=== PATIENT | female | born 1975 | race African-American/Black ===

== ENCOUNTER 2017-03-06 17:06 | Emergency (ER) | payer BC ==
[2017-03-06 17:11] VITALS: BP 118/82; PULSE 70; TEMP 98.6; BMI 35.9
[2017-03-06] MEDS ORDERED: ONDANSETRON *ODT* 4 MG TABLET SL ONE (17:22)
[2017-03-06] MEDS ORDERED: MECLIZINE HCL 25 MG TABLET (FP) PO ONE (17:23)
--- NOTE | 2017-03-06 17:28 | PDOC ---
History of Present Illness - General History Source: Patient Exam Limitations: No Limitations - History of Present Illness Initial Comments: 03/06/17 17:31 The patient is a 41 year old female, with a significant past medical history of vertigo, asthma and seasonal allergies, who presents to the emergency department with headache, dizziness and nausea after a fall 2 days ago. She reports that she was in a restaurant when she slipped on water and fell backwards, hitting the back of her head. She denies any loss of consciousness. She describes her dizziness as a spinning sensation. She describes her headache as mostly localized on the back of her head, ranging from mild to moderate, without radiation or modifying factors. The patient denies chest pain and shortness of breath. Denies fever, chills, vomit, diarrhea and constipation. Allergies: Seasonal allergies Past surgical history: None reported Social history: No alcohol, tobacco or drug use reproted <Quinton Ricardo - Last Filed: 03/06/17 17:30> - General History Source: Patient Exam Limitations: No Limitations <Thalia Robles - Last Filed: 03/06/17 19:03> - General Chief Complaint: Headache Stated Complaint: headache Time Seen by Provider: 03/06/17 17:13 Past History <Quinton Ricardo - Last Filed: 03/06/17 17:30> - Past Medical History Other medical history: layo - Psycho/Social/Smoking Cessation Hx Anxiety: No Suicidal Ideation: No Smoking History: Never smoked Hx Alcohol Use: No Drug/Substance Use Hx: No Substance Use Type: None <Thalia Robles - Last Filed: 03/06/17 19:03> - Past Medical History Allergies/Adverse Reactions: Allergies Allergy/AdvReac Type Severity Reaction Status Date / Time No Known Allergies Allergy Verified 03/06/17 17:07 Home Medications: Ambulatory Orders Cetirizine HCl [Zyrtec] 10 mg PO HS tablet 03/02/15 Meclizine HCl 25 mg PO QID PRN #20 tab.chew MDD 4 03/06/17 Mometasone/Formoterol [Dulera 200 Mcg/5 Mcg Inhaler] 2 inh IH ASDIR 03/06/17 Review of Systems - Review of Systems Able to Perform ROS?: Yes Comments:: 06/12/17 17:32 GENERAL/CONSTITUTIONAL: No fever or chills. No weakness. HEAD, EYES, EARS, NOSE AND THROAT: No change in vision. No ear pain or discharge. No sore throat. CARDIOVASCULAR: No chest pain or shortness of breath RESPIRATORY: No cough, wheezing, or hemoptysis. GASTROINTESTINAL: (+) Nausea. No vomiting, diarrhea or constipation. GENITOURINARY: No dysuria, frequency, or change in urination. MUSCULOSKELETAL: No joint or muscle swelling or pain. No neck or back pain. SKIN: No rash NEUROLOGIC: (+) Headache and dizziness. No loss of consciousness, or change in strength/sensation. ENDOCRINE: No increased thirst. No abnormal weight change HEMATOLOGIC/LYMPHATIC: No anemia, easy bleeding, or history of blood clots. ALLERGIC/IMMUNOLOGIC: No hives or skin allergy. <Quinton Ricardo - Last Filed: 03/06/17 17:30> *Physical Exam - Vital Signs Last Vital Signs Temp Pulse Resp BP Pulse Ox 98.6 F 70 16 118/82 100 03/06/17 17:06 03/06/17 17:06 03/06/17 17:06 03/06/17 17:06 03/06/17 17:06 - Physical Exam Comments: 03/06/17 17:32 GENERAL: Awake, alert, and fully oriented, in no acute distress HEAD: No signs of trauma, normocephalic, atraumatic EYES: PERRLA, EOMI, sclera anicteric, conjunctiva clear ENT: Auricles normal inspection, hearing grossly normal, nares patent, oropharynx clear without exudates. Moist mucosa NECK: Normal ROM, supple, no lymphadenopathy, JVD, or masses. No carotid bruits LUNGS: No distress, speaks full sentences, clear to auscultation bilaterally HEART: Regular rate and rhythm, normal S1 and S2, no murmurs, rubs or gallops, peripheral pulses normal and equal bilaterally. ABDOMEN: Soft, nontender, normoactive bowel sounds. No guarding, no rebound. No masses EXTREMITIES: Normal inspection, Normal range of motion, no edema. No clubbing or cyanosis. NEUROLOGICAL: Cranial nerves II through XII grossly intact. Normal speech, normal gait, no focal sensorimotor deficits. Finger to nose normal, negative romberg, negative mony edith pike, heal to quintero normal, alternating hand normal. SKIN: Warm, Dry, normal turgor, no rashes or lesions noted. <Quinton Ricardo - Last Filed: 03/06/17 17:30> - Vital Signs Last Vital Signs Temp Pulse Resp BP Pulse Ox 98.6 F 70 16 118/82 100 03/06/17 17:06 03/06/17 17:06 03/06/17 17:06 03/06/17 17:06 03/06/17 17:06 <Thalia Robles - Last Filed: 03/06/17 19:03> ED Treatment Course - RADIOLOGY Radiology Studies Ordered: Category Date Time Status HEAD CT WITHOUT CONTRAST [CT] Stat CT Scan 03/06/17 17:22 Ordered <Thalia Robles - Last Filed: 03/06/17 19:03> Medical Decision Making - Medical Decision Making 03/06/17 17:23 41 yo F w h/o seasonal allergies, and asthma, vertigo here s/p fall 2 days ago. fell backward after slipped in a restaurant. hit back of her head.. no loc. initially felt little dizzy. today nausea and dizziness persist, also has vertigo. no imbalance. no weakness. no vomiting. mild headache and pain in back of head where she hit. has had this vertigo in the past. on exam pt awake, alert, head atraumatic, no carotid bruit. no cervical spine tenderness. lungs clear. heart RRR no m/r/g. abd soft NT. ext wwp. nuero GCX 15 , 5/5/ all four ext. finger to N normal, heel to quintero nml, alt hand movement nml. gait normal. , neg mony hallpike, CN grossly intact. no nystagmus differential: concussive syndrome, sinusitis and vertigo, tension headache, sinus headache. plan meclizline, ct head r/o ich. zofran and ucg. reasses. <Thalia Robles - Last Filed: 03/06/17 19:03> *DC/Admit/Observation/Transfer - Attestations Scribe Attestion: 03/06/17 17:32 Documentation prepared by Quinton Ricardo, acting as certified ophthalmic medical technician for Thalia Robles MD <Quinton Ricardo - Last Filed: 03/06/17 17:30> - Discharge Dispostion Admit: No <Thalia Robles - Last Filed: 03/06/17 19:03> Diagnosis at time of Disposition: Concussion, Positional vertigo - Discharge Dispostion Disposition: HOME Condition at time of disposition: Improved - Prescriptions Prescriptions: Meclizine HCl 25 mg PO QID PRN #20 tab.chew MDD 4 PRN Reason: Vertigo - Patient Instructions Printed Discharge Instructions: Benign Paroxysmal Positional Vertigo, Concussion Additional Instructions: take meclizine 25 mg every 6 hours as needed for vertigo, or dizziness . return for any problems or concerns. follow up with your primary doctor. no contact sports until without headache for at least 7 days. take tylenol 500 mg every 6 hours as needed for pain.
[2017-03-06] MEDS ORDERED: ONDANSETRON *ODT* 4 MG TABLET ONE (17:31)
[2017-03-06] MEDS ORDERED: MECLIZINE HCL 25 MG TABLET (FP) ONE (18:04)
== END 2017-03-06 19:13 | disposition home or self-care (01) ==
LOC: FER 17:06
DX: S06.0X9A Concussion with loss of consciousness of unspecified duration, initial encounter (principal); H81.10 Benign paroxysmal vertigo, unspecified ear; J45.909 Unspecified asthma, uncomplicated; W01.0XXA Fall on same level from slipping, tripping and stumbling without subsequent striking against object, initial encounter; Y93.89 Activity, other specified; Y92.511 Restaurant or cafe as the place of occurrence of the external cause
CPT/HCPCS: 70450-TC; 84703; 99281-25

== ENCOUNTER 2023-04-22 10:41 | Emergency (ER) | payer BC ==
[2023-04-22 10:53] VITALS: BP 107/67; PULSE 63; RESP 18; TEMP 98.3; BMI 27.3
[2023-04-22 11:38] LABS: HEMATOCRIT 34.1 % (32.4-45.2); HEMOGLOBIN 10.8 G/dL (10.7-15.3); MCH 23.9 pg (25.7-33.7); MCHC 31.6 g/dl (32.0-36.0); MEAN CELL VOLUME 75.5 fl (80-96); MEAN PLT VOLUME 9.6 fl (7.5-11.1); RBC 4.51 10^6/uL (3.60-5.2); RDW 17.8 % (11.6-15.6); WHITE BLOOD COUNT 8.9 10^3/uL (4.0-10.8)
[2023-04-22 11:44] LABS: HCG,QUALITATIVE URINE Negative
[2023-04-22 11:48] LABS: ALBUMIN 4.3 g/dl (3.4-5.0); BILIRUBIN,TOTAL 0.3 mg/dl (0.2-1); BLOOD UREA NITROGEN 13.2 mg/dl (7-18); CALCIUM 8.8 mg/dl (8.5-10.1); POTASSIUM 3.9 mmol/L (3.5-5.1); SGOT/AST 15.8 U/L (15-37); SGPT/ALT 11.4 U/L (7-52); TOT PROT 6.6 g/dl (6.4-8.2)
[2023-04-22 12:31] LABS: EPITHELIAL CELLS FEW /hpf
[2023-04-22 12:51] LABS: PLATELET ESTIMATE SLT INCREASE
[2023-04-22] MEDS ORDERED: KETOROLAC TROMETHAMINE 30 MG/1 ML VIAL IVPUSH ONE (14:52)
[2023-04-22] MEDS ORDERED: KETOROLAC TROMETHAMINE 30 MG/1 ML VIAL ONE (14:56)
[2023-04-22 16:19] LABS: CREATININE 0.9 mg/dl (0.6-1.3)
== END 2023-04-22 15:15 | disposition home or self-care (01) ==
LOC: FER 10:41
PROC: 3E033NZ Introduction of Analgesics, Hypnotics, Sedatives into Peripheral Vein, Percutaneous Approach (ICD-10-PCS; principal; 2023-04-22)
DX: R10.9 Unspecified abdominal pain (principal)
CPT/HCPCS: 36415; 74177-TC; 76705-TC; 76775-TC; 76830-TC; 80053; 81003; 81015; 84703; 85027; 99285-25; Q9967